=== PATIENT | female | born 1980 | race Caucasian/White ===

== ENCOUNTER 2016-09-05 13:44 | Day surgery (SDC) | payer BC ==
[~2016-09-05] VITALS: Ht 165.1 cm; Wt 75.0 kg
[2016-09-05] VITALS (8 sets, daily range): BP systolic 103–120; BP diastolic 46–80; PULSE 58–95; TEMP 98.2
[~2016-09-05 13:44] MED LIST: ALLEGRA-D 12 HO1 TER PO; ALPRAZOLAM1 MG PO; BENADRYL 50MG C50 MG PO; CYMBALTA 60MG60 MG PO; EPA/GLA1 SGL PO; LORTAB 5/500 501 TAB PO; PHENERGAN 25 TA25 MG PO; PRENATAL1 TA1 PO; TYLENOL 325MG325 MG PO; VALTREX500 MG PO; [UNRECOGNIZED DRUG - OTHER]
[2016-09-05 15:13] LABS: PH 7 (5-8); URINE APPEARANCE Clear; URINE BACTERIA Rare /hpf; URINE BILIRUBIN Negative (NEGATIVE); URINE BLOOD Negative (NEGATIVE); URINE COLOR Yellow; URINE GLUCOSE Negative (NEGATIVE); URINE KETONE 1+ (NEGATIVE); URINE RBC 0-2 /hpf; URINE UROBILINOGEN Negative (NEGATIVE)
[2016-09-05 15:16] LABS: BASO % 0.2 % (0.0-2.0); EOS # 0.1 (0.0-0.7); EOS % 0.8 % (0-4.0); GRAN # 12.9 (1.4-6.5); LYMPH # 2.1 (1.2-3.4); LYMPH % 12.9 % (20.0-51.0); MEAN CELL VOLUME 89 fl (80.0-100.0); MEAN CORPUSCULAR HEMOGLOBIN 31 pg (27.0-31.0); MEAN CORPUSCULAR HGB CONC 35 g/dl (33.0-37.0); MEAN PLATELET VOLUME 10.4 fl (7.4-10.4); MONO # 0.9 (0.1-0.6); MONO % 5.7 % (1.7-9.3); PLATELET COUNT 230 K/mm3 (130-400); RED BLOOD COUNT 4.51 M/mm3 (4.10-5.30); REDCELL DISTRIBUTION WIDTH-CV 12.7 % (11.5-14.5); WHITE BLOOD COUNT 16.1 K/mm3 (4.8-10.8)
[2016-09-05 15:19] LABS: ADJUSTED CALCIUM 9.2 mg/dL (8.4-10.2); ALANINE AMINOTRANSFERASE 34 U/L (9-52); ALBUMIN 4.5 gm/dL (3.5-5.0); ALKALINE PHOSPHATASE 81 U/L (50-136); ANION GAP 12 mmol/L (7-16); BILIRUBIN,TOTAL 0.9 mg/dL (0.0-1.0); BLOOD UREA NITROGEN 11 mg/dL (7-17); CALCIUM 9.6 mg/dL (8.4-10.2); CARBON DIOXIDE 21 mmol/L (22-30); CHLORIDE 100 mmol/L (98-107); CREATININE, serum 0.64 mg/dL (0.52-1.25); GLUCOSE 100 mg/dL (74-106); LIPASE 76 U/L (23-300); POTASSIUM 4.3 mmol/L (3.4-5.0); SODIUM 134 mmol/L (137-145); TOTAL PROTEIN 7.9 gm/dL (6.4-8.2)
[2016-09-05 15:20] LABS: C-REACTIVE PROTEIN < 0.5 mg/dL (0.0-0.9)
[2016-09-05] MEDS ORDERED: LEXAPRO 10MG10 MG PO (15:45)
[2016-09-05] MEDS ORDERED: PRINIVIL20 MG PO (15:45)
[2016-09-05] MEDS ORDERED: PROAIR HFA0.09 MG/AC IH (15:46)
[2016-09-05] MEDS ORDERED: RESTORIL 1515 MG/CAP PO (15:46)
[2016-09-05] MEDS ORDERED: MUCINEX DM 30 M1 TE1 (15:46)
[2016-09-05] MEDS ORDERED: COLACE 100100 MG/CAP PO (19:46)
[2016-09-05] MEDS ORDERED: NORCO 325 MG-51 TAB PO (19:46)
[2016-09-05] MEDS ORDERED: MOTRIN 200200 MG/TAB PO (19:46)
[2016-09-05] MEDS ORDERED: ZOFRAN ODT4 MG PO (19:47)
[2016-09-06 02:00] VITALS: BP 139/63; PULSE 78; TEMP 98.2
[2016-09-06 06:00] VITALS: BP 128/72; PULSE 78; TEMP 97.9
== END 2016-09-06 10:00 | disposition home or self-care (01) ==
LOC: COL.ER 13:44 → SDCO 17:32 → SURG 20:15 → SDCO 09-06 10:00
PROVIDERS: Nurse Practitioner
DX: K35.80 Unspecified acute appendicitis (principal); I10 Essential (primary) hypertension
CPT/HCPCS: OP; J0694; J1100; J1170; J1885; J2405; J2550; J2704; J2710; J3010; J7030; J7120; Q9967